=== PATIENT | male | born 1990 | race Two or more races ===

== ENCOUNTER 2023-04-15 18:16 | Emergency (ER) | payer MEDICAID ==
[~2023-04-15] VITALS: Ht 172.7 cm; Wt 106.6 kg
--- NOTE | 2023-04-15 18:24 | NUR ---
BIB AMBULANCE, PLACED INTO ROOM #4, INFORMED OF PLAN OF CARE, PLACED ON MONITOR, BEDSIDE EKG IN PROGRESS FOR MD REVIEW. NO S/S OF ANY DISTRESS NOTED AT THIS TIME. ER PROVIDER HAS SEEN THE PATIENT.
--- NOTE | 2023-04-15 18:51 | NUR ---
Patient discharged to home in stable condition. Written and verbal after care instructions given. Patient verbalizes understanding of instructions. Stressed follow up or return to ER for worsening s/s.
[2023-04-15 18:52] VITALS: BP 143/91
== END 2023-04-15 18:52 | disposition home or self-care (01) ==
LOC: ER 18:16
DX: F41.8 Other specified anxiety disorders (principal)
CPT/HCPCS: A4663